=== PATIENT | male | born 1955 | race Caucasian/White ===

== ENCOUNTER 2019-12-18 21:33 | Emergency (ER) | payer OTHER, SELFPAY ==
[~2019-12-18] VITALS: Ht 167.6 cm; Wt 74.8 kg
--- NOTE | 2019-12-18 21:33 | NUR ---
PT TAKEN TO BED 9
--- NOTE | 2019-12-18 21:40 | NUR ---
64 Y/O MALE C/O BILATERAL CHEST PAIN AND EPIGSTRIC PAIN X TUESDAY. RATES PAIN 10/10 AND DESCRIBES IT BURNING SENSATION AND RADIATES TO LEFT ARM. DENIES ANY SOB, COUGH, N,V,D. CAP REFILL < 3. RADIAL PULSES BILAT ON UPPER EXTREM +2. SPO2 100% RA. NO RESP DISTRESS NOTED. VSS. A&OX4. STEADY GAIT. HEART SOUNDS S1S2 PRESENT. NO EDEMA PRESENT. SKIN IS DRY, LOOSE, AND WARM TO TOUCH. NKA. PMH: HIGH CHOLESTEROL, HTN, DM.
[2019-12-18 21:46] VITALS: BP 152/91
--- NOTE | 2019-12-18 22:05 | NUR ---
Dr. Caballero examining patient.
[2019-12-18] MEDS ORDERED: NACL 0.9% 500 ML IV SCH (22:12)
[2019-12-18] MEDS ORDERED: PANTOPRAZOLE 40 MG INJ VIAL IVP ONE (22:15)
[2019-12-18] MEDS ORDERED: LIDOCAINE VISCOUS 2% 20 ML UDC PO ONE (22:15)
[2019-12-18] MEDS ORDERED: ALUMINUM HYD/MAG/SIMETHICONE 30 ML UDC PO ONE (22:15)
[2019-12-18] MEDS ORDERED: DICYCLOMINE HCL LIQUID 10 MG/5 ML UDC PO ONE (22:15)
--- NOTE | 2019-12-18 22:26 | NUR ---
X-Ray at bedside.
[2019-12-18 22:39] LABS: BASOPHILS % (AUTO) 0.3 % (0.0-2.0); EOSINOPHILS # (AUTO) 0.1 K/uL (0-0.4); EOSINOPHILS % (AUTO) 1.1 % (0.0-4.0); HEMATOCRIT 41.5 % (36-52); HEMOGLOBIN 14.3 g/dL (12.0-18.0); LYMPHOCYTES # (AUTO) 1.6 K/uL (2.0-11.5); LYMPHOCYTES % (AUTO) 25.3 % (20.5-51.1); MEAN CORPUSCULAR HEMOGLOBIN 29 pg (27-31); MEAN CORPUSCULAR HGB CONC 35 g/dL (33-37); MEAN CORPUSCULAR VOLUME 83.5 fL (80-94); MONOCYTES # (AUTO) 0.5 K/uL (0.8-1.0); NEUTROPHILS # (AUTO) 4.3 K/uL (1.8-7.7); NEUTROPHILS % (AUTO) 66.3 % (42.2-75.2); PLATELET COUNT (AUTO) 363 K/uL (140-450); RED BLOOD CELL COUNT(AUTO) 4.97 MIL/uL (4.20-6.10); RED CELL DISTRIBUTION WIDTH 13.1 % (11.6-13.7); WHITE BLOOD COUNT (AUTO) 6.5 K/uL (4.8-10.8)
[2019-12-18 22:54] LABS: ALBUMIN 4.7 g/dL (3.4-5.0); CARBON DIOXIDE 25.6 mmol/L (21-32); CREATININE 0.8 mg/dL (0.6-1.3); POTASSIUM 4.6 mmol/L (3.5-5.1); TOTAL BILIRUBIN 0.3 mg/dL (0.0-1.0)
[2019-12-18 23:25] VITALS: BP 148/81
--- NOTE | 2019-12-18 23:25 | NUR ---
Patient discharged with v/s stable. Written and verbal after care instructions given and explained. Patient alert, oriented and verbalized understanding of instructions. Ambulatory with steady gait. All questions addressed prior to discharge. ID band removed. Patient advised to follow up with PMD. Rx of PROTONIX,AND MAALOX given. Patient educated on indication of medication including possible reaction and side effects. Opportunity to ask questions provided and answered.
== END 2019-12-18 23:25 | disposition home or self-care (01) ==
LOC: MED 21:33 → EEVIPCON 21:33 → MED 23:25
DX: K21.9 Gastro-esophageal reflux disease without esophagitis (principal); E11.9 Type 2 diabetes mellitus without complications; I10 Essential (primary) hypertension
CPT/HCPCS: 36415; 71045; 80053; 84484; 85025; 93005; 96374; 99285; C9113; J7030; Q0092; 99284

== ENCOUNTER 2021-02-17 19:46 | Emergency (ER) | payer OTHER, SELFPAY ==
[~2021-02-17] VITALS: Ht 167.6 cm; Wt 72.6 kg
[2021-02-17 20:05] VITALS: BP 144/88
--- NOTE | 2021-02-17 21:13 | NUR ---
PT AMBULATED TO BED #1
--- NOTE | 2021-02-17 21:23 | NUR ---
65/M C/O RIGHT SIDE LOWER BACK PAIN X 1 WEEK. TOOK IBUPROFEN 600MG AT 1000 WITH NO RELIEF. 10 PAIN AND DESCRIBES IT SHARP. NO RECENT TRUAMA, HEAVY LIFTING OR FALLS. HAS A OTC LIDOCAINE PATCH WITH NO RELIEF. NKDA. PMH: HTN, DM, ARTHRITIS.
[2021-02-17] MEDS ORDERED: diazePAM 5 MG TAB PO ONE (22:05)
[2021-02-17] MEDS ORDERED: KETOROLAC 30 MG/ML VIAL IM ONE (22:05)
[2021-02-17] MEDS ORDERED: DIAZ5TAB7 PO (22:56)
[2021-02-17] MEDS ORDERED: NAPR-54 PO (22:56)
[2021-02-17 23:10] VITALS: BP 150/93
--- NOTE | 2021-02-17 23:10 | NUR ---
Patient discharged with v/s stable. Written and verbal after care instructions given and explained. Patient alert, oriented and verbalized understanding of instructions. Ambulatory with steady gait. All questions addressed prior to discharge. ID band removed. Patient advised to follow up with PMD. Rx of VALIUM AND NAPROSYN given. Patient educated on indication of medication including possible reaction and side effects. Opportunity to ask questions provided and answered.
== END 2021-02-17 23:10 | disposition home or self-care (01) ==
LOC: MED 19:46
DX: M54.5 Low back pain (principal); E11.9 Type 2 diabetes mellitus without complications; I10 Essential (primary) hypertension; Z79.899 Other long term (current) drug therapy
CPT/HCPCS: 74176; 81002; 96372; 99284; J1885

== ENCOUNTER 2022-05-13 11:59 | Emergency (ER) | payer OTHER ==
[~2022-05-13] VITALS: Ht 167.6 cm; Wt 75.3 kg
[~2022-05-13 11:59] MED LIST: DIAZ5TAB8 PO; NAPR-54 PO
[2022-05-13 12:02] VITALS: BP 162/80
--- NOTE | 2022-05-13 14:50 | NUR ---
Marcial betts in ED - 05/13/22 at 1452 by [email or web address] PT ELOPED FROM ER. UNABLE TO LOCATE IN LOBBY OR OUTSIDE
--- NOTE | 2022-05-13 14:52 | NUR ---
PATIENT LEFT WITHOUT BEING SEEN BY DR. CHA. NO FURTHER CARE PROVIDED FOR PATIENT.
== END 2022-05-13 14:50 | disposition left against medical advice (07) ==
LOC: MED 11:59
DX: R51.9 Headache, unspecified (principal); Z53.21 Procedure and treatment not carried out due to patient leaving prior to being seen by health care provider